=== PATIENT | male | born 2000 | race Caucasian/White ===

== ENCOUNTER 2022-04-23 14:53 | Emergency (ER) | payer OTHER ==
[2022-04-23] MEDS ORDERED: Lidocaine 1% w/Epinephrine 1:200K 30 ML VIAL ONE (15:31)
== END 2022-04-23 16:20 | disposition home or self-care (01) ==
LOC: CSHERS 14:53
DX: K61.0 Anal abscess (principal)
CPT/HCPCS: 46050; 87070; 87077; 87186; 87205